=== PATIENT | male | born 1950 | race Caucasian/White ===

== ENCOUNTER 2018-05-02 08:00 | Day surgery (SDC) | payer MEDICARE ==
[~2018-05-02 08:00] MED LIST: AMLODIPINE10 MG PO; COLLAGEN PO; HYZAAR1 TA2 PO; METOPROL TAR25 MG PO; SG ASA LOW81 M1 PO; [UNRECOGNIZED DRUG - OTHER] PO; [UNRECOGNIZED DRUG - OTHER] PO
[2018-05-02 11:40] VITALS: BP 97/51
== END 2018-05-02 11:55 | disposition home or self-care (01) ==
LOC: ORM 08:00
PROVIDERS: ATTEND Surgery
PROC: 0VBF0ZZ Excision of Right Spermatic Cord, Open Approach (ICD-10-PCS; principal; 2018-05-02)
DX: N43.3 Hydrocele, unspecified (principal)

== ENCOUNTER 2023-01-12 06:47 | Day surgery (SDC) | payer MEDICARE ==
[~2023-01-12] VITALS: Ht 172.7 cm; Wt 100.2 kg
[~2023-01-12 06:47] MED LIST changes: +AMLOD/BENAZP1 CA3 PO
[2023-01-12 09:01] VITALS: BP 137/74
== END 2023-01-12 09:23 | disposition home or self-care (01) ==
LOC: ENDO 06:47 → ORM 08:00 → ENDO 09:23
PROVIDERS: ATTEND Surgery
PROC: 0DJD8ZZ Inspection of Lower Intestinal Tract, Via Natural or Artificial Opening Endoscopic (ICD-10-PCS; principal; 2023-01-12)
DX: Z12.11 Encounter for screening for malignant neoplasm of colon (principal); K64.8 Other hemorrhoids; I10 Essential (primary) hypertension; Z86.010 Personal history of colon polyps